=== PATIENT | female | born 1980 | race African-American/Black ===

== ENCOUNTER 2018-07-11 10:14 | Emergency (ER) | payer OTHER ==
[2018-07-11] MEDS: KETOROLAC 60 MG/2 ML VIAL (J1885) IM (11:26)
== END 2018-07-11 11:56 | disposition home or self-care (01) ==
LOC: M ED 10:14
DX: M54.40 Lumbago with sciatica, unspecified side (principal)
CPT/HCPCS: J1885

== ENCOUNTER → 2020-04-09 | Outpatient (CLI) | payer OTHER ==
[~2020-04-09] MED LIST: BCP PO; IBUP-1022 PO; MEDR4PAK PO; NAPR250T4 PO; ROBA500T PO
--- NOTE | 2020-04-09 15:12 | REPMRS ---
Patient History The patient states she had a clinical breast exam in December 2019.Family history of breast cancer at age 43 in sister, unknown cancer in maternal grandmother. Taking hormonal contraceptives for 6 years. 3D TOMOSYNTHESIS WAS PERFORMED. [facility] Screen Mammo: April 09, 2020 - Exam #: [id number] Bilateral CC and MLO view(s) were taken. Technologist: Aimee Chery, Technologist No prior studies available for comparison. FINDINGS: The breast tissue is heterogeneously dense. This may lower the sensitivity of mammography. There is a moderate amount of residual fibroglandular tissue which is fairly symmetric. There is no dominant mass, areas of architectural distortion, or clustered microcalcification typical of malignancy. Assessment: BI-RADS/ACR category 1 mammogram. Negative Mammogram. Recommendation Routine screening mammogram in 1 year (for women over age 40). This mammogram was interpreted with the aid of an FDA-approved computer-aided dectection system. THE LIFETIME RISK OF BREAST CANCER IS 26.6%, THEREFORE SUPPLEMENTAL SCREENING MRI OF THE BREASTS IS RECOMMENDED IN 6 MONTHS. Electronically Signed By: Hong Pearce MD 04/09/20 9900
== END ==
LOC: M WHC 13:15
PROVIDERS: ATTEND Nurse Practitioner
DX: Z12.31 Encounter for screening mammogram for malignant neoplasm of breast (principal)